=== PATIENT | male | born 1955 | race Caucasian/White ===

== ENCOUNTER 2020-08-04 23:44 | Emergency (ER) | payer MEDICARE ==
[~2020-08-04] VITALS: Ht 198.1 cm; Wt 87.6 kg
[2020-08-05 01:02] VITALS: BP 133/73
== END 2020-08-05 01:35 | disposition home or self-care (01) ==
LOC: EMS 23:48
DX: R53.1 Weakness (principal); Z59.0 Homelessness
CPT/HCPCS: 99283; Z7502